=== PATIENT | male | born 1980 | race Caucasian/White ===

== ENCOUNTER → 2016-11-14 | Outpatient (REF) ==
--- NOTE | 2016-11-14 12:40 | REP ---
Clinical: Pain and disability. Technique: AP, lateral, and cone down views of the lumbosacral spine. Comparison: 01/02/2016. Findings: Alignment and lordosis maintained. No evidence for acute or old fracture / compression injury. No subluxation. Schmorl's nodes are again identified at the T12-L1 and L1-L2 levels along with minimal endplate sclerosis and disc space narrowing. Mild disc space narrowing at the L5-S1 level is also suggested. Impression: Mild degenerative changes as noted above similar to prior examination. Signed by Andrea Jon MD 11/14/2016 12:30 P
== END ==
LOC: M SMT 10:42
PROVIDERS: ATTEND Internal Medicine
DX: Z02.71 Encounter for disability determination (principal)

== ENCOUNTER → 2021-01-24 | Outpatient (REF) ==
--- NOTE | 2021-01-25 05:00 | REPPI ---
INDICATION: DISABILITY DIAGNOSIS DETERMINATION COMPARISON: None. TECHNIQUE: AP, lateral, coned-down views of the lumbar spine. FINDINGS: Three views of the lumbosacral spine demonstrate satisfactory alignment and lordosis without acute fracture / compression injury or subluxation. Minimal age-related changes are appreciated without significant overt degenerative spondylosis by radiographic evaluation. IMPRESSION: Minimal age-related changes are appreciated without significant overt degenerative spondylosis by radiographic evaluation. <Electronically signed by Andrea Jon > 01/25/21 [id number]
== END ==
LOC: M PLAIMG 11:08
PROVIDERS: ATTEND Internal Medicine
DX: Z00.00 Encounter for general adult medical examination without abnormal findings (principal)

== ENCOUNTER → 2022-01-29 | Outpatient (REF) | LOC: M PLAIMG 12:41 | PROVIDERS: ATTEND Internal Medicine | DX: Z00.00 Encounter for general adult medical examination without abnormal findings (principal) ==